=== PATIENT | female | born 1990 | race American Indian/Alaskan Native ===

== ENCOUNTER 2016-12-20 16:49 | Emergency (ER) | payer MEDICAID ==
[2016-12-20 17:03] VITALS: RESP 18; O2SAT 100
--- NOTE | 2016-12-20 17:30 | C.PDOC ---
History Of Present Illness 26-year-old female, presents to the emergency department with complaints of syncopal episode prior to arrival. Episode onset at work, patient states room was hot. Patient started feeling hot and light headed. Initially standing, then sat in front of the fan. Patient states he subsequently passed out, one minute as per bystanders. (+)posterior head injury. Currently asymptomatic. Patient states eating today, denies recent illness. LMP: 11/30. No PMHx [employer]. ONSET AT WORK, PS ROOM WAS HOT. STARTED FEELING HOT AND LIGHTHEADED. INITIALLY STANDING, THEN SAT IN FRONT OF FAN. PS SUBSEQUENTLY PASSED OUT, 1 MIN PER BYSTANDERS. +POST HEAD INJURY. CURRENTLY ASYMPT. PS EATING TODAY, DENIES RECENT ILLNESS. LMP 11/30. NO PMH EXAM HEENT ATRAUM NONTEND ABD NEG LUNGS NEG NEURO INTACT EXT ATRAUM SKIN INTACT Time Seen by Provider: 12/20/16 17:10 Chief Complaint (Nursing): Syncope History Per: Patient History/Exam Limitations: no limitations Past Medical History Reviewed: Historical Data, Nursing Documentation, Vital Signs Vital Signs: Last Vital Signs Temp 97.6 F 12/20/16 17:02 Pulse 85 12/20/16 17:02 Resp 18 12/20/16 17:02 BP 103/70 12/20/16 17:02 Pulse Ox 100 12/20/16 18:50 Family History: States: Unknown Family Hx - Social History Hx Alcohol Use: No Hx Substance Use: Yes (occasional as per patient) - Immunization History Hx Tetanus Toxoid Vaccination: No Hx Influenza Vaccination: No Hx Pneumococcal Vaccination: No Review Of Systems Except As Marked, All Systems Reviewed And Found Negative. Constitutional: Negative for: Fever, Chills Cardiovascular: Negative for: Chest Pain Respiratory: Negative for: Cough, Shortness of Breath Gastrointestinal: Negative for: Vomiting Musculoskeletal: Negative for: Back Pain Skin: Negative for: Rash Physical Exam - Physical Exam Appears: Non-toxic, No Acute Distress Skin: Warm, Dry, No Rash Head: Atraumatic, Normacephalic Eye(s): bilateral: Normal Inspection, PERRL Nose: Normal Oral Mucosa: Moist Lips: Normal Appearing Neck: Normal ROM Chest: Symmetrical Cardiovascular: Rhythm Regular Respiratory: Normal Breath Sounds, No Accessory Muscle Use Extremity: Normal ROM Neurological/Psych: Oriented x3, Normal Speech ED Course And Treatment - Laboratory Results Result Diagrams: 12/20/16 17:52 12/20/16 17:52 O2 Sat by Pulse Oximetry: 100 Progress Note: CT Head. BMP. CBC. Chest X-Ray. IVF, Tylenol. Urinalysis/ HCG. Reassess and DIsposition Disposition Counseled Patient/Family Regarding: Studies Performed, Diagnosis, Need For Followup - Disposition Referrals: [facility] [Outside] [facility] [Outside] Disposition: HOME/ ROUTINE Disposition Time: 19:02 Condition: IMPROVED Instructions: Syncope (ED) Forms: Work Excuse - Clinical Impression Clinical Impression: Vasovagal syncope - Scribe Statement The provider has reviewed the documentation as recorded by the Scribe David Angel All medical record entries made by the Scribe were at my direction and personally dictated by me. I have reviewed the chart and agree that the record accurately reflects my personal performance of the history, physical exam, medical decision making, and the department course for this patient. I have also personally directed, reviewed, and agree with the discharge instructions and disposition.
[2016-12-20] MEDS ORDERED: Sodium Chloride 0.9% 1,000 ML IV ONE (17:32)
[2016-12-20] MEDS ORDERED: Sodium Chloride 0.9% 1,000 ML ONE (17:38)
--- NOTE | 2016-12-20 17:58 | RAD ---
HISTORY: SYNCOPE COMPARISON: None available. TECHNIQUE: Chest PA and lateral FINDINGS: LUNGS: No focal consolidation. Please note that chest x-ray has limited sensitivity for the detection of pulmonary masses. PLEURA: No significant pleural effusion identified. No definite pneumothorax . CARDIOVASCULAR: The cardiomediastinal silhouette appears within normal limits of size. OSSEOUS STRUCTURES: No acute osseous abnormality identified. VISUALIZED UPPER ABDOMEN: Unremarkable. OTHER FINDINGS: Bilateral nipple rings. IMPRESSION: No focal consolidation, significant pleural effusion, or definite pneumothorax identified.
[2016-12-20 18:00] LABS: BASO % 0.3 % (0.0-2.0); EOS # 0.1 K/uL (0.0-0.7); EOS % 1.3 % (0.0-4.0); HEMATOCRIT 40.3 % (34.0-47.0); LYMPH # 1.5 K/uL (1.0-4.3); LYMPH % 25.2 % (20.0-40.0); MEAN CELL VOLUME 95.1 fL (81.0-99.0); MEAN CORPUSCULAR HEMOGLOBIN 31.7 pg (27.0-31.0); MEAN CORPUSCULAR HGB CONC 33.4 g/dL (33.0-37.0); MEAN PLATELET VOLUME 6.9 fL (7.2-11.7); MONO # 0.5 K/uL (0.0-0.8); MONO % 8.4 % (0.0-10.0); RED CELL DISTRIBUTION WIDTH 13.8 % (11.5-14.5)
[2016-12-20 18:07] LABS: CHLORIDE 102 mmol/L (98-107)
[2016-12-20 18:08] LABS: POTASSIUM 3.6 mmol/L (3.6-5.2); SODIUM 138 mmol/L (132-148)
[2016-12-20 18:10] LABS: GFR AFRICAN-AMERICAN > 60
[2016-12-20 18:11] LABS: BLOOD UREA NITROGEN 14 mg/dL (7-17); CARBON DIOXIDE 24 mmol/L (22-30); GLUCOSE,RANDOM 78 mg/dL (65-105)
[2016-12-20 18:24] LABS: RBC URINE 5 /hpf (0-3); URINE BACTERIA MOD (<OCC); URINE BILIRUBIN NEGATIVE (NEGATIVE); URINE BLOOD NEGATIVE (NEGATIVE); URINE COLOR Yellow (YELLOW); URINE GLUCOSE (UA) NORMAL (Normal); URINE KETONE TRACE mg/dL (NEGATIVE); URINE LEUKOCYTE ESTERASE 3+ Leu/uL (Negative); URINE PROTEIN 2+ mg/dL (NEGATIVE); URINE UROBILINOGEN NORMAL mg/dL (0.2-1.0); WBC URINE 36 /hpf (0-5)
--- NOTE | 2016-12-20 18:54 | CT ---
EXAM: CT Head Without Intravenous Contrast CLINICAL HISTORY: 26 years old, female; Signs and symptoms; Syncope and collapse; Additional info: Syncope, trauma TECHNIQUE: Axial computed tomography images of the head/brain without intravenous contrast. This CT exam was performed using one or more of the following dose reduction techniques: automated exposure control, adjustment of the mA and/or kV according to patient size, and/or use of iterative reconstruction technique. EXAM DATE/TIME: Exam ordered 12/20/2016 5:34 PM COMPARISON: No relevant prior studies available. FINDINGS: Brain: Unremarkable. No hemorrhage. No significant white matter disease. No edema. Ventricles: Unremarkable. No ventriculomegaly. Bones/joints: Unremarkable. No acute fracture. Soft tissues: Unremarkable. Sinuses: Unremarkable as visualized. No acute sinusitis. Mastoid air cells: Unremarkable as visualized. No mastoid effusion. IMPRESSION: Normal head/brain CT.
[2016-12-20 19:11] VITALS: BP 112/69; PULSE 71; TEMP 98.5
== END 2016-12-20 19:10 | disposition home or self-care (01) ==
LOC: C.ER 16:49
DX: R55 Syncope and collapse (principal)
CPT/HCPCS: 70450; 71020; 80048; 81001; 82948; 84703; 85025; 96360; 99285; J7040